=== PATIENT | female | born 1960 | race Caucasian/White ===

== ENCOUNTER 2017-04-13 15:39 | Outpatient (CLI) | payer OTHER ==
[2017-04-13 19:47] LABS: Creatinine, Urine 22.33 mg/dL (47-110); Microalbumin Urine Less than 1.0 mg/dL (0.5-50.0); Microalbumin/Creat Ratio 44.8 mg/g (Less than 30)
== END 2017-04-13 15:40 | disposition home or self-care (01) ==
LOC: HPCALD 15:39
PROVIDERS: ATTEND Family Medicine
DX: N30.00 Acute cystitis without hematuria (principal); E11.9 Type 2 diabetes mellitus without complications
CPT/HCPCS: 36415; 82043; 87077; 87086; 87186

== ENCOUNTER 2019-02-16 12:44 | Outpatient (CLI) | payer OTHER ==
--- NOTE | 2019-02-16 18:57 | ULT ---
ULTRASOUND OF THE SOFT TISSUES RIGHT SHOULDER 02/16/19 Ultrasonography of the soft tissues of the right shoulder was performed over a palpable abnormality. There does appear to be a solid mass density in this location that measures approximately 3.2 x 0.6 x 2.8 cm. It is somewhat isoechoic with muscle and seems reasonably well defined. The ultrasound does not suggest a definite or exact diagnosis except to say that it is not cystic. Depending on the clini bob history and exam, if one needed to pursue imaging further, then an MRI would probably be the best way to go. IMPRESSION: 3.2 cm solid soft tissue density. The ultrasound does not suggest a definite diagnosis. POS: HOME
== END 2019-02-16 12:45 | disposition home or self-care (01) ==
LOC: BURULT 12:44
PROVIDERS: ATTEND Family Medicine
DX: M25.811 Other specified joint disorders, right shoulder (principal)
CPT/HCPCS: 76999

== ENCOUNTER 2022-02-16 13:51 | Emergency (ER) | payer BC, OTHER ==
[2022-02-16] MEDS ORDERED: Iopamidol 370 76% 100 ML VIAL FS ONE (13:52)
[2022-02-16 14:19] LABS: #Basophils 0.1 thou/uL (0.0-0.2); #Eosinphils 0.1 thou/uL (0.0-0.7); #Lymphocytes 0.7 thou/uL (1.20-3.40); #Monocytes 0.7 thou/uL (0.11-0.59); #Neutrophils 4.7 thou/uL (1.40-6.50); %Eosinophils 1.9 % (0.0-10.0); %Lymphocytes 11.6 % (21.0-51.0); %Monocytes 11.4 % (0.0-10.0); %Neutrophils 74.1 % (42.0-75.0); Hemoglobin 12.7 g/dL (12.0-16.0); Mean Corpuscular HGB CONC 33.5 g/dL (32.0-36.0); Mean Corpuscular Hemoglobin 30.2 pg (27.0-31.0); Mean Corpuscular Volume 90.4 fL (78.0-98.0); Mean Platelet Volume 5.6 fL (7.4-10.4); Platelet Count 276 thou/uL (130-400); RBC Distribution Width 13.4 % (11.5-14.5); Red Blood Cell (RBC) Count 4.19 mill/uL (4.20-5.40); White Blood Cell (WBC) Count 6.4 thou/uL (4.8-10.8)
[2022-02-16 14:37] LABS: ALT (SGPT) 14 U/L (8-55); AST (SGOT) 21 U/L (5-34); Albumin 4.3 g/dL (3.5-5.0); Alkaline Phosphatase 71 U/L (40-110); Anion Gap 15 mmol/L (10-20); BUN (Urea Nitrogen) 11 mg/dL (9.8-20.1); Bilirubin, Total 0.5 mg/dL (0.2-1.2); Calc. Creatinine Clearance 0 mL/min (70-130); Calcium 9.3 mg/dL (7.8-10.44); Carbon Dioxide 25 mmol/L (22-29); Chloride 100 mmol/L (98-107); Globulin 3.5 g/dL (2.4-3.5); Glucose 119 mg/dL (70-105); Potassium 4.4 mmol/L (3.5-5.1); Protein, Total 7.8 g/dL (6.0-8.3); Sodium 136 mmol/L (136-145)
[2022-02-16] MEDS ORDERED: Ketorolac Tromethamine 30 MG/ML VIAL ONE (15:33)
[2022-02-16] MEDS ORDERED: Morphine 4 MG/ML VIAL ONE (15:33)
[2022-02-16] MEDS ORDERED: Ondansetron PF 4 MG/2 ML Vial ONE (15:34)
[2022-02-16] MEDS ORDERED: Aspirin Chewable 81 MG TAB ONE (16:46)
[2022-02-16 17:11] LABS: Bilirubin Negative (Negative); Blood, Urine Negative (Negative); Clarity Cloudy (Clear); Glucose, Urine (Dipstick) Negative (Negative); Ketone, Urine Negative (Negative); Leukocyte Negative (Negative); Nitrite Positive (Negative); Protein, Urine (Dipstick) Negative (Neg-Trace); Specific Gravity, Urine 1.015 (1.005-1.030); Urobilinogen 0.2 mg/dL (Less than 2); pH, Urine 7.5 (5.0-9.0)
[2022-02-16 17:28] LABS: Bacteria/HPF 4+ HPF (None Seen); RBC/HPF 0-3 HPF (0-3); Squamous Epithelial 0-3 HPF (0-3); WBC/HPF 0-3 HPF (0-3)
== END 2022-02-16 18:29 | disposition home or self-care (01) ==
LOC: BURERS 13:51
DX: U07.1 COVID-19 (principal); N39.0 Urinary tract infection, site not specified; E27.8 Other specified disorders of adrenal gland; R00.0 Tachycardia, unspecified; E11.9 Type 2 diabetes mellitus without complications; M06.9 Rheumatoid arthritis, unspecified; F17.210 Nicotine dependence, cigarettes, uncomplicated
CPT/HCPCS: 36415; 71045; 71275; 80053; 81003; 81015; 83605; 83880; 84484; 85025; 85379; 87040; 87077; 87086; 87186; 87804; 93005; 96374; 96375; J1885; J2270; J2405; Q9967; U0003; U0005

== ENCOUNTER 2022-08-24 12:31 | Emergency (ER) | payer BC ==
[2022-08-24 13:04] LABS: #Basophils 0.1 thou/uL (0.0-0.2); #Eosinphils 0.3 thou/uL (0.0-0.7); #Lymphocytes 2.9 thou/uL (1.20-3.40); #Monocytes 0.4 thou/uL (0.11-0.59); #Neutrophils 5.4 thou/uL (1.40-6.50); %Basophils 1.2 % (0.0-1.0); %Eosinophils 2.8 % (0.0-10.0); %Monocytes 4.6 % (0.0-10.0); %Neutrophils 59.5 % (42.0-75.0); Hemoglobin 13.4 g/dL (12.0-16.0); Mean Corpuscular HGB CONC 31.6 g/dL (32.0-36.0); Mean Corpuscular Hemoglobin 29.2 pg (27.0-31.0); Mean Corpuscular Volume 92.5 fl (78.0-98.0); Mean Platelet Volume 6.3 fL (7.4-10.4); Platelet Count 342 10x3/uL (130-400); RBC Distribution Width 13.7 % (11.5-14.5); Red Blood Cell (RBC) Count 4.59 mill/uL (4.20-5.40); White Blood Cell (WBC) Count 9.1 10x3/uL (4.8-10.8)
[2022-08-24 13:14] LABS: ALT (SGPT) 12 U/L (8-55); AST (SGOT) 16 U/L (5-34); Albumin 4.6 g/dL (3.5-5.0); Alkaline Phosphatase 76 U/L (40-110); Anion Gap 16 mmol/L (10-20); BUN (Urea Nitrogen) 13 mg/dL (9.8-20.1); Bilirubin, Total 0.4 mg/dL (0.2-1.2); Calc. Creatinine Clearance 0 mL/min (70-130); Calcium 9.6 mg/dL (7.8-10.44); Carbon Dioxide 27 mmol/L (22-29); Chloride 99 mmol/L (98-107); Estimated GFR 65; Globulin 3.7 g/dL (2.4-3.5); Glucose 77 mg/dL (70-105); Potassium 3.9 mmol/L (3.5-5.1); Protein, Total 8.3 g/dL (6.0-8.3); Sodium 138 mmol/L (136-145)
[2022-08-24] MEDS ORDERED: Aspirin Chewable 81 MG TAB ONE (13:21)
== END 2022-08-24 14:43 | disposition home or self-care (01) ==
LOC: BURERS 12:31
DX: R07.89 Other chest pain (principal); R42 Dizziness and giddiness; F17.210 Nicotine dependence, cigarettes, uncomplicated; E11.9 Type 2 diabetes mellitus without complications
CPT/HCPCS: 71046; 80053; 84484; 85025; 96360